=== PATIENT | female | born 1940 | race Caucasian/White ===

== ENCOUNTER → 2025-05-13 | Day surgery (SDC) | payer MEDICARE, BC ==
[~2025-05-13] MED LIST: Lidocaine 1% 5 ML VIAL ONE
[2025-05-13] MEDS: Lidocaine 1% 5 ML VIAL INJECT ONE ×2 (12:38→12:54)
== END ==
LOC: CC.SDS 11:45
PROVIDERS: ATTEND Family Medicine
DX: I83.813 Varicose veins of bilateral lower extremities with pain (principal)
CPT/HCPCS: C1888; J2003